=== PATIENT | male | born 1965 | race Caucasian/White ===

== ENCOUNTER 2021-03-15 17:52 | Emergency (ER) | payer BC ==
[~2021-03-15] VITALS: Ht 188 cm; Wt 90.7 kg
[2021-03-15 18:04] VITALS: BP 154/97
[2021-03-15] MEDS ORDERED: ZOFRAN IV STA (18:18)
--- NOTE | 2021-03-15 18:22 | ER.PDOC ---
General Chief Complaint: Requesting Medical Care Stated Complaint: ABD PAIN Time seen by MD: 18:09 Source: patient Exam Limitations: no limitations History of Present Illness Initial Comments This is a 55-year-old man who comes to the emergency department with nausea and vomiting since last night at 10 PM. He is a recovering alcoholic and did have several drinks last night with a friend. In the past he has had alcohol abuse and acute pancreatitis. Today he has abdominal pain but it is fairly mild associated with inability to keep any fluids down including saliva. Severity/Quality: moderate Radiation: no radiation Associated Symptoms: diarrhea, nausea/vomiting Exacerbated by: food Allergies: Coded Allergies: No Known Allergies (Unverified , 03/15/21) Vital Signs First Vital Signs Date Time Temp Pulse Resp B/P (MAP) Pulse Ox O2 Delivery O2 Flow Rate FiO2 03/15/21 18:04 98.1 88 20 97 03/15/21 18:04 154/97 (116) Room Air Last Vital Signs Date Time Temp Pulse Resp B/P (MAP) Pulse Ox O2 Delivery O2 Flow Rate FiO2 03/15/21 18:04 98.1 88 18 03/15/21 18:04 154/97 (116) 97 Room Air Constitutional: denies no symptoms reported, denies see HPI, denies chills, denies diaphoresis, denies fever; malaise; denies weakness, denies other EENTM: denies no symptoms reported, denies see HPI, denies eye pain, denies blurred vision, denies tearing, denies double vision, denies ear pain, denies ear discharge, denies nose pain, denies nose congestion, denies throat pain, denies throat swelling, denies mouth pain, denies mouth swelling, denies other Respiratory: denies no symptoms reported, denies see HPI, denies cough, denies orthopnea, denies shortness of breath, denies SOB with exertion, denies SOB at rest, denies stridor, denies wheezing, denies other Cardiovascular: denies no symptoms reported, denies see HPI, denies chest pain, denies edema, denies irregular heart rate, denies lightheadedness, denies palpitations, denies syncope, denies other Gastrointestinal: denies no symptoms reported, denies see HPI, denies abdomen distended; abdominal pain; denies blood streaked bowels, denies constipated; diarrhea; denies difficulty swallowing; nausea; denies poor appetite, denies poor fluid intake, denies rectal bleeding; vomiting; denies other Genitourinary: denies no symptoms reported, denies see HPI, denies burning, denies dysuria, denies discharge, denies frequency, denies flank pain, denies hematuria, denies incontinence, denies pain, denies urgency, denies other Musculoskeletal: denies no symptoms reported, denies see HPI, denies back pain, denies gout, denies joint pain, denies joint swelling, denies muscle pain, denies muscle stiffness, denies neck pain, denies other Skin: denies no symptoms reported, denies see HPI, denies change in color, denies change in hair/nails, denies dryness, denies lesions, denies lumps, denies rash, denies other Psychiatric/Neurological: denies no symptoms reported, denies see HPI, denies anxiety, denies depressed, denies emotional problems, denies headache, denies numbness, denies paresthesia, denies pre-existing deficit, denies seizure, denies tingling, denies tremors, denies weakness, denies other Endocrine: denies no symptoms reported, denies see HPI, denies excessive sweating, denies flushing, denies intolerance to cold, denies intolerance to heat, denies increased hunger, denies increased thrist, denies increased urine, denies unexplained weight gain, denies unexplaned weight loss, denies other Hematologic/Lymphatic: denies no symptoms reported, denies see HPI, denies anemia, denies blood clots, denies easy bleeding, denies easy bruising, denies swollen glands, denies other All Other Systems: Reviewed and Negative Physical Exam General Appearance: WD/WN, Moderate Distress HEENT: PERRL/EOMI, Normal ENT Inspection, TMs Normal, Pharynx Normal Neck: Non-Tender, Full Range of Motion, Supple, Normal Inspection Respiratory: chest non-tender, lungs clear, normal breath sounds, no respiratory distress, no accessory muscle use Cardiovascular: Normal Peripheral Pulses, Regular Rate, Rhythm, No Edema, No Gallop, No JVD, No Murmur Gastrointestinal: Normal Bowel Sounds, Non Tender, Soft Pelvic: Normal External Exam, Normal Adnexa, No Cerv. 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, No Motor/Sensory Deficits, Alert, Normal Mood/Affect, Oriented x 3 Skin: Normal Color, Warm/Dry Lymphatic: No Adenopathy Results/Orders Results/Orders Orders - ALLA PACHECO MD 0.9 % Sodium Chloride (Ns 1000ml) (03/15/21 18:30) Ondansetron Hcl/Pf (Zofran) (03/15/21 18:18) Cbc With Auto Diff (03/15/21 18:18) Comprehensive Metabolic Panel (03/15/21 18:18) Amylase (03/15/21 18:18) Lipase (03/15/21 18:18) 0.9 % Sodium Chloride (Ns 1000ml) (03/15/21 18:28) Ondansetron Hcl/Pf (Zofran) (03/15/21 18:28) Vital Signs Date Time Temp Pulse Resp B/P (MAP) Pulse Ox O2 Delivery O2 Flow Rate FiO2 03/15/21 18:04 98.1 88 18 03/15/21 18:04 98.1 88 18 154/97 (116) 97 Room Air 03/15/21 18:04 98.1 88 20 97 Administered Medications Medications (Trade) Dose Ordered Sig/Grupo Route PRN Reason Start Time Stop Time Status Last Admin Dose Admin Ondansetron HCl (Zofran) 4 mg OT STAT IV 03/15/21 18:18 03/15/21 18:20 DC 03/15/21 18:35 4 MG Sodium Chloride 1,000 ml @ 0 mls/hr Q0M ONCE IV 03/15/21 18:30 03/15/21 18:31 DC 03/15/21 18:35 1,200 MLS/HR Laboratory Tests Test 03/15/21 18:34 12 18:46 White Blood Count 11.6 10^3/uL (4.5-11.0) H Red Blood Count 4.94 10^6/uL (4.50-5.90) Hemoglobin 16.6 g/dL (13.9-16.3) H Hematocrit 48.6 % (37.0-53.0) Mean Corpuscular Volume 98.4 fL (78-100) Mean Corpuscular Hemoglobin 33.6 pg (26-34) Mean Corpuscular Hemoglobin Concent 34.2 g/dL (33-36.5) Red Cell Distribution Width 11.1 % (11.5-14.5) L Platelet Count 286 10^3/uL (150-400) Mean Platelet Volume 9.8 fL (7.8-11.0) Neutrophils (%) (Auto) 87.4 % (41.0-85.0) H Lymphocytes (%) (Auto) 6.1 % (24.0-44.0) *L Monocytes (%) (Auto) 5.9 % (5.0-12.0) Neutrophils # (Auto) 10.1 10^3/uL (1.8-7.7) H Lymphocytes # (Auto) 0.71 10^3/uL1 (1.0-4.8) L Monocytes # (Auto) 0.7 10^3/uL (0.3-0.8) Absolute Immature Granulocyte (auto 0.02 10^3 u/L (0-2) Absolute Eosinophils (auto) 0.0 10^3/uL (0.0-0.2) Immature Granulocytes % 0.20 % (0.00-0.50) Eosinophils % 0.1 % (0.0-5.0) Basophils % 0.3 % (0.0-0.2) H Basophils # 0.0 10^3/uL (0.0-0.1) Sodium Level 144 mmol/L (132-145) Potassium Level 3.7 mmol/L (3.6-5.2) Chloride Level 104.0 mmol/L (96-109) Carbon Dioxide Level 27.2 mmol/L (20.0-32) Anion Gap 16.5 Blood Urea Nitrogen 12 mg/dL (7-18) Creatinine 1.15 mg/dL (0.59-1.40) Estimated GFR () 80.2 (>/=60) Est GFR (CKD-EPI)(Non-Afr Jamaican) 66.3 (>/=60) BUN/Creatinine Ratio 10.0 Glucose Level 145 mg/dL (70-110) H Calcium Level 8.9 mg/dL (8.4-10.5) Total Bilirubin 0.8 mg/dL (0.2-1.0) Aspartate Amino Transferase (AST) 26 U/L (0-35) Alanine Aminotransferase (ALT) 40 U/L (12-78) Alkaline Phosphatase 99 U/L (50-136) Total Protein 8.1 g/dL (6.4-8.2) Albumin 3.8 g/dL (3.4-5.0) Globulin 4.3 Albumin/Globulin Ratio 0.883 Amylase Level 40 U/L (25-115) Lipase 59 U/L (114-286) L Differential Total Cells Counted 100 #CELLS Segmented Neutrophils 85 % (31-76) H Band Neutrophils 0 % (2-6) L Lymphocytes 9 % (25-36) L Monocytes 5 % (3-9) Basophils 1 % (0-2) Atypical Lymphocytes 0 % Platelet Estimate ADEQUATE Platelet Morphology NORMAL Progress Progress While in the emergency department, the patient received a liter of normal saline, and Zofran. This seemed to help his symptoms quite a bit. He was feeling much better. ER DEPART Departure Time of Disposition: 19:58 Disposition: 01 HOME / SELF CARE / HOMELESS Impression: Primary Impression: Acute gastritis Condition: Stable Patient Instructions: Gastritis, Adult Referrals: PCP,UNKNOWN (PCP) PRIMARY CARE PROVIDER Additional Instructions: Drink plenty of fluids, take Phenergan and/or Zofran for nausea. Duration or Time Spent with Pa: Unknown Problem Qualifiers Primary Impression: Acute gastritis Gastritis type: alcoholic Gastritis bleeding: without bleeding Qualified Codes: K29.20 - Alcoholic gastritis without bleeding ALLA PACHECO MD Mar 15, 2021 18:22
[2021-03-15] MEDS ORDERED: NS 1000ML 1,000 ML ONE (18:28)
[2021-03-15] MEDS ORDERED: ZOFRAN ONE ×2 (18:28→20:17)
[2021-03-15] MEDS ORDERED: NS 1000ML 1,000 ML IV ONE (18:30)
[2021-03-15 18:44] LABS: BASOPHIL % 0.3 % (0.0-0.2); EOSINOPHIL % 0.1 % (0.0-5.0); LYMPHOCYTES # 0.71 10^3/uL1 (1.0-4.8); LYMPHOCYTES % 6.1 % (24.0-44.0); MEAN CORP HGB 33.6 pg (26-34); MONOCYTES # 0.7 10^3/uL (0.3-0.8); MONOCYTES % 5.9 % (5.0-12.0); NEUTROPHIL # 10.1 10^3/uL (1.8-7.7); NEUTROPHILS % 87.4 % (41.0-85.0); PLATELET COUNT 286 10^3/uL (150-400); RED CELL DISTRIBUTION WIDTH 11.1 % (11.5-14.5)
[2021-03-15 19:37] LABS: BAND NEUTROPHILS 0 % (2-6); SEGMENTED NEUTROPHILS 85 % (31-76)
[2021-03-15 19:38] LABS: BASOPHIL 1 % (0-2); LYMPHOCYTE 9 % (25-36); MONOCYTE 5 % (3-9)
[2021-03-15 19:45] LABS: CARBON DIOXIDE 27.2 mmol/L (20.0-32)
[2021-03-15 20:05] VITALS: BP 145/96
[2021-03-15] MEDS ORDERED: ZOFRAN IV PRN (20:30)
== END 2021-03-15 20:30 | disposition home or self-care (01) ==
LOC: ER 17:52
DX: K29.00 Acute gastritis without bleeding (principal); Z79.899 Other long term (current) drug therapy; Z87.19 Personal history of other diseases of the digestive system
CPT/HCPCS: 36415; 80053; 82150; 83690; 85025; 96361 ×2; 96374; 96376; 99284; J2405 ×2; J7030